=== PATIENT | female | born 1965 | race Hispanic/Latino ===

== ENCOUNTER → 2020-06-23 | Day surgery (SDC) | payer SELFPAY, OTHER ==
[~2020-06-23] MED LIST: OR PHACO EYE KIT ONE; PREOP PHACO EYE KIT ONE
[2020-06-23 12:55] VITALS: BP 150/78
== END | disposition home or self-care (01) ==
LOC: OR 07:16
PROVIDERS: ATTEND Ophthalmology
DX: H25.11 Age-related nuclear cataract, right eye (principal); I10 Essential (primary) hypertension; Z01.810 Encounter for preprocedural cardiovascular examination; Z01.812 Encounter for preprocedural laboratory examination; Z11.59 Encounter for screening for other viral diseases
CPT/HCPCS: 66984; 81025; 93005; U0002; V2632